=== PATIENT | female | born 1940 | race Caucasian/White ===

== ENCOUNTER → 2019-01-07 | Outpatient (CLI) | payer OTHER ==
[~2019-01-07] MED LIST: ASPIRIN81 M2 PO; AZOR 5-20 MG T1 EACH PO; CALCIUM 600 +1 EAC1 PO; COLESTIPOL HCL1 G1 PO; ESTRACE1 MG PO; FISH OIL 1,0001 EAC5 PO; GLUCOSAMINE HC500 MG PO; ICAPS TABLET1 EACH PO; MULTIVITAMINS1 EAC7 PO; NAPROSYN500 MG PO; NEXIUM40 MG PO; PAXIL10 MG PO; PROVERA5 MG PO; SYNTHROID112 MCG PO
== END ==
LOC: RAD 13:27
DX: M47.815 Spondylosis without myelopathy or radiculopathy, thoracolumbar region (principal); M48.05 Spinal stenosis, thoracolumbar region; M41.85 Other forms of scoliosis, thoracolumbar region; M25.78 Osteophyte, vertebrae

== ENCOUNTER → 2019-01-19 | Outpatient (CLI) | payer OTHER | LOC: MRI 14:31 | DX: M47.26 Other spondylosis with radiculopathy, lumbar region (principal); M48.061 Spinal stenosis, lumbar region without neurogenic claudication; M48.05 Spinal stenosis, thoracolumbar region; M51.16 Intervertebral disc disorders with radiculopathy, lumbar region; M51.25 Other intervertebral disc displacement, thoracolumbar region; M41.86 Other forms of scoliosis, lumbar region; M25.78 Osteophyte, vertebrae ==

== ENCOUNTER → 2019-01-27 | Outpatient (CLI) | payer OTHER ==
[~2019-01-27] VITALS: Ht 177.8 cm; Wt 69.9 kg
[~2019-01-27] MED LIST changes: +BENICAR 5 MG5 MG PO; +CALCITONIN-SAL3.7 ML NASAL; +NORCO 5-325 TA1 EAC1 PO; +RANITIDINE 150150 M1 PO; +SYNTHROID112 MC1 PO; -SYNTHROID112 MCG PO; +VOLTAREN GEL 1100 G2 TOP
--- NOTE | ~2019-01-27 | HPC ---
Formerly [facility] [address] [place] [address] PAIN MANAGEMENT CONSULTATION Name: HERIBERTO CALDWELL [facility] [id number] Admission: 01/27/19 ������������������ Attend Phys: Suresh Patel DO Discharge: ������������������ Date of : 40 Report #: [id number] THIS REPORT FOR: //name// CC: Suresh Ireland MD DATE OF SERVICE: 01/27/2019 CHIEF COMPLAINT: Low back pain, right lower extremity pain with paresthesias. HISTORY OF PRESENT ILLNESS: As you know, the patient is a 78-year-old female with longstanding history of low back pain, right lower extremity pain with intermittent paresthesias. She reports pain began somewhere in 2018 progressively worsened. She has trialled conservative treatment options via Dr. Ireland's office to address ongoing pain issues. Unfortunately, her symptoms have not improved. She subsequently underwent MRI of the lumbar spine, which showed scoliotic curvature with apex of the curvature at L2, minimal foraminal stenosis at multiple levels of severe right foraminal stenosis at the L4-L5 level with abutment and compression of the L4 nerve root. Due to the findings of the MRI, the patient was then referred to our clinic to discuss the possibility of undergoing epidural injections and other treatment options for lumbar radiculopathy. The patient reports today pain is continuous with intermittent exacerbation symptoms. She describes the pain as burning, sharp, numbness and tingling. Patient's current pain score 6/10, daily average at 8/10, worst pain has been is 10/10. The patient states that all activities tend to exacerbate symptoms, nothing appears to improve pain to date. She has been referred to our service to discuss treatment options for suspected lumbar radiculopathy. PAST MEDICAL HISTORY: 1. Hypertension. 2. Seasonal allergies. 3. Hypothyroidism. 4. Degenerative joint disease. 5. Osteoarthritis. 6. Peptic ulcer disease. PAST SURGICAL HISTORY: 1. Tonsillectomy. 2. Appendectomy. 3. Tubal ligation. SOCIAL HISTORY: The patient denies tobacco, IV or illicit drug use. Admits to occasional alcohol beverage. She is a retired clerical professional. She [facility] [address] [place] [address] PAIN MANAGEMENT CONSULTATION Name: HERIBERTO CALDWELL Room #: REG [facility] Kenny#: [id number] Admission: 01/27/19 ������������������ Attend Phys: Suresh Patel DO Discharge: ������������������ Date of : 40 Report #: [id number] retired in 1996, not receiving workmen's compensation or she is trying to obtain disability benefits. Not in litigation in regards to pain, unaccompanied at today's visit. REVIEW OF SYSTEMS: Positive for cataracts, status post surgery, tinnitus, shortness of breath walking or lying flat, rectal bleeding secondary to hemorrhoids, frequent urination, nocturia, incontinence and dribbling to urine, insomnia, low back pain, right lower extremity pain and paresthesias, heat and cold intolerance. All other review of systems negative per 12-point review of systems other than those listed in history of present illness. Pain impact score 48/70 indicating severe interference of daily activities secondary to pain. ALLERGIES: PENICILLIN AND SULFA. CURRENT MEDICATIONS: Hydrocodone/acetaminophen 5/325 one tab p.o. q. 12 hours p.r.n. for pain, calcitonin 3.75 mL spray twice a day, diclofenac sodium 2 grams topically up to 4 times a day, olmesartan 5 mg per day, ranitidine 150 mg per day, paroxetine 10 mg per daily, multivitamin 1 tab per day, omega-3 fish oil 1 tab per day, colestipol 1 gram twice a day, calcium carbonate 1 tab per day, levothyroxine 112 mcg per day, aspirin 81 mg per day. IMAGING: MRI lumbar spine obtained 01/19/2019 shows prominent scoliotic curvature extending through the spine with dextroscoliotic apex at L2. No significant neural impingement demonstrated the spinal canal, though there is severe right foraminal stenosis at the L4-L5 level with abutment and compression of the exiting L4 nerve root. PQRS: The patient has osteoarthritic changes of the lumbar spine, bilateral hips, bilateral knees. No rheumatoid arthritis. She is placing pain score today 6/10. She is not a fall risk, typically but did have a fall in the last 3 months, apparently tripped over some objects at home. This has been rectified. The patient is not on blood thinners. She is treated for hypertension. She is on opioids, but not chronic opioids. She has a low assessment for risk of opioid addiction based on our addiction tool. Pain impact score 48/70 severe interference of daily activities secondary to pain. PHYSICAL EXAMINATION: VITAL SIGNS: Blood pressure 148/75, pulse 72, respiratory rate 16 and unlabored. The patient is 100% on room air. Height 5 feet 10 inches tall, weight 154 pounds, BMI calculated 22.1. GENERAL: Well-developed, well-nourished, well-hydrated 78-year-old female, appears stated age, placing current pain score 6/10. HEENT: Normocephalic, atraumatic. Pupils equal, round, reactive to light. Extraocular muscles are intact. Sclerae nonicteric without injection. [address] [address] PAIN MANAGEMENT CONSULTATION Name: HERIBERTO CALDWELL Room #: [facility]#: [id number] Admission: 01/27/19 ������������������ Attend Phys: Suresh Patel DO Discharge: ������������������ Date of : 40 Report #: [id number] NEUROLOGIC: Cranial nerves 2-12 grossly intact. Speech fluent. The patient deemed a good historian. LUNGS: Clear, no wheeze, rhonchi or rales. CARDIOVASCULAR: Regular. No appreciable gallop, no rub. ABDOMEN: Soft, nontender, nondistended. EXTREMITIES: Show no clubbing, no cyanosis, and no edema. MUSCULOSKELETAL: Lower extremity strength appears equal and symmetrical 5/5. Slight giveaway strength noted with hip flexion on the right when compared to left due to pain generation. Seated straight leg raising is negative. Supine straight leg raising is positive on the right, approximately 70 degrees. Anu's test is negative. Modified Gaenslen's positive for axial low back pain, no radiation of symptoms. Ankle clonus is negative. Babinski is negative. Muscle bulk and tone symmetrical in comparing left lower extremity to right. Intact to light touch from L1 through S2 dermatomes. ASSESSMENT: 1. Symptomatic lumbar radiculopathy. 2. Severe neuroforaminal stenosis of lumbar spine. 3. Facet arthropathy of the lumbar spine. 4. Lumbosacral spondylosis with radiculopathy. 5. Displacement of lumbar intervertebral disk with radiculopathy. 6. Lumbar degeneration. 7. Chronic intractable pain. PLAN: 1. Based on today's physical exam and history the patient has provided, the description the patient uses in regards to pain as well as location of symptoms, likely source of the patient's pain is a lumbar radiculopathy. Findings of the MRI are consistent with L4 nerve root impingement on the right side, which does correlate to the patient's right lower extremity symptomology. We discussed the findings of the MRI with the patient today and discussed the treatment options based on those findings. The following was discussed with the patient. We discussed physical therapy, stretching exercise, core strengthening as a treatment option. We discussed medication management utilizing neuropathic pain medications and a nonsteroidal anti-inflammatory. We discussed lumbar epidural injections under fluoroscopic guidance, for which the patient was referred to our clinic. We also discussed spinal cord stimulator therapy and surgical options. After reviewing risks and benefits of all the proposed treatment options, the patient chose to have her undergo a lumbar epidural injection under fluoroscopic guidance to address lumbar radicular symptoms as quickly as possible. 2. The patient was advised risks and benefits of a lumbar epidural injection. These risks include but are not necessarily limited to bleeding, bruising, infection, worsening pain, no relief of pain, also risk of temporary or [address] [address] PAIN MANAGEMENT CONSULTATION Name: JAVIHERIBERTO L Room #: REG [facility] Cox#: [id number] Admission: 01/27/19 ������������������ Attend Phys: Suresh Patel DO Discharge: ������������������ Date of : 40 Report #: [id number] permanent muscle weakness, temporary or permanent nerve damage, possible paralysis, post-dural puncture headache and . The patient states understood and wished to proceed. 4. No medication changes made at today's visit. The patient will continue current medical therapy as previously prescribed. 5. We will see the patient back in followup visit on an as needed basis for possible next in the series of epidural injections under fluoroscopic guidance to address lumbar radicular symptoms. 6. We wish to thank Dr. Ireland for the referral of the patient to our clinic. We will keep you apprised of her response to treatment as we address her lumbar radicular symptoms. Again, we wish to thank you for the opportunity to see the patient in consultation. PROCEDURE NOTE DESCRIPTION OF PROCEDURE: L5-S1 right paramedian epidural steroid injection under fluoroscopic guidance. This is the first procedure of the first series that the patient is undergoing. After obtaining written consent, the patient was taken back to the fluoroscopy suite, placed in a prone position with pillow under the abdomen to decrease lumbar lordosis. The skin overlying the lumbosacral area was then prepped and draped in aseptic fashion. The L5-S1 vertebral interspace was then identified by AP fluoroscopy. The skin and subcutaneous tissue overlying the target site of injection was anesthetized with 3 mL 1% lidocaine. A 20-gauge 3-1/2 inch Tuohy needle was then advanced under fluoroscopic guidance towards the epidural space using a right paramedian approach. The epidural space was identified using loss of resistance to air technique. After negative aspiration for heme or cerebrospinal fluid, a total of 1 mL of Omnipaque was injected. A lumbar epidurogram was confirmed using both AP and lateral fluoroscopy. After negative aspiration for heme or cerebrospinal fluid, 5 mL of a solution containing 2 mL 40 mg per mL, 80 mg total triamcinolone, 3 mL lidocaine 1% was injected in increments. Contrast spread was noted posterior epidural space. The needle was then retracted approximately half way and needle tract flushed with 1 mL of 1% lidocaine. Needle was then removed. There were no apparent sensory or motor deficits in the lower extremity following the procedure. A sterile bandage was placed over the injection site. The heart rate, pulse, oximetry and blood pressure were continuously monitored after the procedure. There were no complications. The patient tolerated the procedure well and was carefully escorted to the recovery room in [facility] [address] [place] [address] PAIN MANAGEMENT CONSULTATION Name: HERIBERTO CALDWELL Room #: REG [facility] Cox#: [id number] Admission: 01/27/19 ������������������ Attend Phys: Suresh Patel DO Discharge: ������������������ Date of : 40 Report #: [id number] condition. There were no apparent complications. After meeting discharge criteria, the patient was then discharged home. ��������������������������������������������� ���������������������������������������� By: ��������������������������������������������� [id number] Suresh Patel DO /nt
[2019-01-27 11:07] VITALS: BP 148/75
--- NOTE | 2019-01-27 11:43 | NUR ---
Pain Clinic Assessment: 1. History of Osteoarthritis: SPINE History of Rheumatoid Arthritis: NO 2. Height: 5 ft. 10 in. 177.8 cm. Weight: 154.0 lb. oz. 69.854 kg. Patient's BMI: 22.1 3. Vital Signs: BP: 148/75 Pulse: 72 Resp: 16 Temp: 02 Sat: 100 ECG Mon: 4. Pain Intensity: 6 5. Fall Risk: Dizziness: Y Needs help standing or walking: N Fallen in the last 3 months: Y Fall risk comments: 6. Patient on Blood Thinner: None 7. History of Hypertension: Y 8. Opioid Therapy greater than 6 weeks: N Opiate Contract Signed: 9. Risk Assessment Tool Provided: 10. Functional Assessment Tool: 11. Recreational Drug Use: Never Drug Type: Tobacco Use: Never Smoker Tobacco Type: Amount or Packs/day: How Many Years: Alcohol Use: Yes Frequency: Special Occasions Quant:
== END | disposition home or self-care (01) ==
LOC: PAIN 06:56
DX: M51.16 Intervertebral disc disorders with radiculopathy, lumbar region (principal); M47.27 Other spondylosis with radiculopathy, lumbosacral region; M99.73 Connective tissue and disc stenosis of intervertebral foramina of lumbar region; M12.88 Other specific arthropathies, not elsewhere classified, other specified site; G89.29 Other chronic pain; I10 Essential (primary) hypertension; E03.9 Hypothyroidism, unspecified; K27.9 Peptic ulcer, site unspecified, unspecified as acute or chronic, without hemorrhage or perforation; Z98.890 Other specified postprocedural states; Z90.49 Acquired absence of other specified parts of digestive tract; Z98.51 Tubal ligation status; Z88.0 Allergy status to penicillin; Z88.2 Allergy status to sulfonamides; Z79.899 Other long term (current) drug therapy; Z79.82 Long term (current) use of aspirin

== ENCOUNTER → 2019-02-05 | Outpatient (CLI) | payer OTHER | LOC: RAD 10:10 | DX: M17.11 Unilateral primary osteoarthritis, right knee (principal) ==

== ENCOUNTER → 2019-04-21 | Outpatient (CLI) | payer OTHER ==
[~2019-04-21] VITALS: Ht 177.8 cm; Wt 70.3 kg
[~2019-04-21] MED LIST changes: +FAMOTIDINE 20 M20 MG PO
[2019-04-21 12:50] VITALS: BP 145/78
--- NOTE | 2019-04-21 12:59 | NUR ---
Pain Clinic Assessment: 1. History of Osteoarthritis: SPINE History of Rheumatoid Arthritis: NO 2. Height: 5 ft. 10 in. 177.8 cm. Weight: 155.0 lb. oz. 70.308 kg. Patient's BMI: 22.2 3. Vital Signs: BP: 145/78 Pulse: 72 Resp: 16 Temp: 02 Sat: 99 ECG Mon: 4. Pain Intensity: 7 5. Fall Risk: Dizziness: N Needs help standing or walking: N Fallen in the last 3 months: N Fall risk comments: 6. Patient on Blood Thinner: None 7. History of Hypertension: Y 8. Opioid Therapy greater than 6 weeks: N Opiate Contract Signed: 9. Risk Assessment Tool Provided: 10. Functional Assessment Tool: 11. Recreational Drug Use: Never Drug Type: Tobacco Use: Never Smoker Tobacco Type: Amount or Packs/day: How Many Years: Alcohol Use: Yes Frequency: Quant:
--- NOTE | 2019-04-28 12:48 | HPC ---
[facility] [address] [place] [address] PAIN MANAGEMENT CONSULTATION Name: HERIBERTO CALDWELL Room #: REG [facility]#: [id number] Admission: 04/21/19 Attend Phys: Suresh Patel DO Discharge: Date of : 40 Report #: [id number] THIS REPORT FOR: //name// CC: Suresh Ireland MD DATE OF SERVICE: 04/21/2019 REFERRING PHYSICIAN: Wilman Ireland MD. CHIEF COMPLAINT: Low back pain and right lower extremity pain with paresthesias. HISTORY OF PRESENT ILLNESS: As you know, the patient is a 78-year-old female with severe osteoarthritic changes of the lumbar spine with severe scoliotic curvature with apex at approximately the L3 level, returning in followup visit with low back pain and right lower extremity pain with paresthesias. She underwent the epidural injection under fluoroscopic guidance at her last visit to address lumbar radicular symptoms with 90% improvement in overall pain, lasting for nearly 7 weeks. She returns today in followup visit to undergo next in the series of lumbar epidural injections in hopes of improving pain. She denies new injury or trauma that may have led to the symptom reoccurrence. ALLERGIES: PENICILLIN and SULFA. CURRENT MEDICATIONS: See chart. SOCIAL HISTORY: The patient denies tobacco, IV or illicit drug use. Admits to occasional alcohol beverage. 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 IMAGING: No new imaging available. PQRS: The patient has severe arthritic changes of the thoracic and lumbar spine. No history of rheumatoid arthritis. She is placing pain intensity at 7/10. She is not a fall risk and has not had a fall in the last 3 months. She is not on blood thinners, but is treated for hypertension. She is not on chronic opioids and has a low opioid addiction potential. Pain impact score, 48 of 70, indicating severe interference of daily activities secondary to pain. PHYSICAL EXAMINATION: VITAL SIGNS: Blood pressure 145/78, pulse is 72, respiratory rate 16 and unlabored, and the patient is 99% on the room air. Height 5 feet and 10 inches tall, weight 155 pounds, BMI calculated 22.2. GENERAL: Well-developed, well-nourished, well-hydrated, scoliotic 78-year-old [address] [address] PAIN MANAGEMENT CONSULTATION Name: HERIBERTO CALDWELL [facility] #: [facility] [id number] Admission: 04/21/19 Attend Phys: Suresh Patel DO Discharge: Date of : 40 Report #: [id number] female, appearing stated age, pain is rated around 7/10. HEENT: Normocephalic and atraumatic. Pupils are equal, round, and reactive to light. Speech is fluent. EXTREMITIES: Show no clubbing, no cyanosis, and no discernible edema. MUSCULOSKELETAL: Lower extremity strength remains symmetrical, 5/5. Seated straight leg raising is negative. Supine straight leg raising, positive on the right. Modified Gaenslen's is positive for axial low back pain, noted significant scoliotic curvature with apex to the right. ASSESSMENT: 1. Symptomatic lumbar radiculopathy. 2. Severe neural foraminal stenosis of the lumbar spine. 3. Facet arthropathy of the lumbar spine. 4. Displacement of the lumbar intervertebral disk with radiculopathy. 5. Lumbar degeneration. 6. Chronic intractable pain. PLAN: 1. The patient returns today in followup visit to undergo next in the series of lumbar epidural injections in hopes of improving pain. As indicated in the history of present illness, the patient did receive about 90% improvement in overall pain, lasting for about 6-7 weeks with the previous epidural injection. She returns today to undergo next in the series. She has been advised of risks and benefits of the procedure, states understood and wished to proceed. 2. No medication changes made at today's visit. The patient will continue current medical therapy as previously prescribed. 3. We will see the patient back in followup visit on an as needed basis for the next in the series of lumbar epidural injections under fluoroscopic guidance. PROCEDURE NOTE: DESCRIPTION OF PROCEDURE: L3-L4 RIGHT PARAMEDIAN EPIDURAL STEROID INJECTION UNDER FLUOROSCOPIC GUIDANCE: This is the second procedure of the first series that the patient is undergoing. After obtaining written consent, the patient was taken back to the fluoroscopy suite, placed in a prone position with pillow under the abdomen to decrease lumbar lordosis. The skin overlying the lumbosacral area was then prepped and draped in aseptic fashion. The L3-L4 vertebral interspace was then identified by AP fluoroscopy. The skin and subcutaneous tissue overlying the target site of injection was anesthetized with 3 mL 1% lidocaine. A 20-gauge, 3-1/2 inch Tuohy needle was then advanced under fluoroscopic guidance towards the epidural space using a right paramedian approach. The epidural space was identified using loss of resistance to air technique. After negative aspiration for heme or cerebrospinal fluid, a total of 1 mL of [address] [address] PAIN MANAGEMENT CONSULTATION Name: HERIBERTO CALDWELL Room #: REG [facility] Cox#: [id number] Admission: 04/21/19 Attend Phys: Suresh Patel DO Discharge: Date of : 40 Report #: [id number] Omnipaque was injected. A lumbar epidurogram was confirmed using both AP and lateral fluoroscopy. After negative aspiration for heme or cerebrospinal fluid, 5 mL of a solution containing 2 mL of 40 mg per mL, 80 mg total triamcinolone along with 3 mL of lidocaine 1% was injected in increments. Contrast spread was noted post-epidural space. The needle was then retracted approximately half way and needle tract flushed with 1 mL of 1% lidocaine. Needle was then removed. There were no apparent sensory or motor deficits in the lower extremity following the procedure. A sterile bandage was placed over the injection site. The heart rate, pulse, oximetry and blood pressure were continuously monitored after the procedure. There were no apparent complications. The patient tolerated the procedure well and was carefully escorted to the recovery room in stable condition. There were no apparent complications. After meeting discharge criteria, the patient was then discharged home. <ELECTRONICALLY SIGNED> By: Suresh Patel DO 04/28/19 [id number] [id number] Suresh Patel DO /nt
== END | disposition home or self-care (01) ==
LOC: PAIN 07:01
DX: M54.5 Low back pain (principal); M51.16 Intervertebral disc disorders with radiculopathy, lumbar region; M47.26 Other spondylosis with radiculopathy, lumbar region; M48.061 Spinal stenosis, lumbar region without neurogenic claudication; G89.29 Other chronic pain; I10 Essential (primary) hypertension; Z98.890 Other specified postprocedural states; Z79.899 Other long term (current) drug therapy; Z88.0 Allergy status to penicillin; Z88.2 Allergy status to sulfonamides

== ENCOUNTER → 2019-08-14 | Outpatient (CLI) | payer OTHER ==
[~2019-08-14] MED LIST changes: +TOPROL XL25 MG PO
== END ==
LOC: SJCVC 15:09
DX: I21.09 ST elevation (STEMI) myocardial infarction involving other coronary artery of anterior wall (principal); I21.19 ST elevation (STEMI) myocardial infarction involving other coronary artery of inferior wall; R94.31 Abnormal electrocardiogram [ECG] [EKG]; R06.02 Shortness of breath; I12.9 Hypertensive chronic kidney disease with stage 1 through stage 4 chronic kidney disease, or unspecified chronic kidney disease; N18.3 Chronic kidney disease, stage 3 (moderate); R07.9 Chest pain, unspecified; E78.00 Pure hypercholesterolemia, unspecified; E03.9 Hypothyroidism, unspecified; K21.9 Gastro-esophageal reflux disease without esophagitis; M81.0 Age-related osteoporosis without current pathological fracture; M21.70 Unequal limb length (acquired), unspecified site; F32.9 Major depressive disorder, single episode, unspecified; Z85.828 Personal history of other malignant neoplasm of skin; Z72.89 Other problems related to lifestyle; Z79.82 Long term (current) use of aspirin; Z79.899 Other long term (current) drug therapy

== ENCOUNTER → 2019-08-24 | Outpatient (CLI) | payer OTHER ==
[~2019-08-24] MED LIST changes: -TOPROL XL25 MG PO
== END ==
LOC: SJCVCIMAG 11:30
DX: I08.1 Rheumatic disorders of both mitral and tricuspid valves (principal); I10 Essential (primary) hypertension; R07.9 Chest pain, unspecified; R53.83 Other fatigue

== ENCOUNTER → 2019-08-25 | Outpatient (CLI) | payer OTHER ==
[~2019-08-25] MED LIST changes: +TOPROL XL25 MG PO
== END ==
LOC: SJCVCIMAG 12:14
DX: I49.3 Ventricular premature depolarization (principal); R42 Dizziness and giddiness; I12.9 Hypertensive chronic kidney disease with stage 1 through stage 4 chronic kidney disease, or unspecified chronic kidney disease; N18.9 Chronic kidney disease, unspecified; E78.00 Pure hypercholesterolemia, unspecified; I25.10 Atherosclerotic heart disease of native coronary artery without angina pectoris; E78.5 Hyperlipidemia, unspecified; K21.9 Gastro-esophageal reflux disease without esophagitis; M81.0 Age-related osteoporosis without current pathological fracture; Z82.49 Family history of ischemic heart disease and other diseases of the circulatory system; Z88.2 Allergy status to sulfonamides; Z88.0 Allergy status to penicillin; Z79.82 Long term (current) use of aspirin; Z79.899 Other long term (current) drug therapy

== ENCOUNTER → 2019-08-31 | Outpatient (CLI) | payer OTHER ==
[~2019-08-31] VITALS: Ht 177.8 cm; Wt 68.9 kg
[2019-08-31 07:05] VITALS: BP 115/61
[2019-08-31 07:18] LABS: HEMATOCRIT 38.5 % (37.0-47.0); HEMOGLOBIN 12.2 gm/dL (12.0-15.0); MCH 30.3 pg (26.0-34.0); MCHC 31.8 g/dL (28.0-37.0); MCV 95.3 fL (80.0-100.0); RBC 4.04 mil/uL (4.20-5.00); RDW 14.4 % (10.5-14.5); WBC 7.1 thou/uL (4.0-11.0)
[2019-08-31 07:29] LABS: CALCIUM 9.3 mg/dL (8.5-10.1); CREATININE 1.3 mg/dL (0.6-1.0); POTASSIUM 4.1 mmol/L (3.5-5.1)
--- NOTE | 2019-08-31 09:01 | EKG ---
[facility] [address] ELECTROCARDIOGRAM REPORT Name: HERIBERTO CALDWELL Room #: REG [facility]#: [id number] Admission: 08/31/19 Attend Phys: Delta Driscoll MD Discharge: Date of : 40 Report #: [id number] THIS REPORT FOR: cc: Wilman Ireland Steven F. DO Couchonnal, Luis F. MD ~ THIS REPORT FOR: //name// Test Date: 2019-08-31 Test Time: 06:33:30 Pat Name: HERIBERTO CALDWELL Department: Room: Gender: Exceptional Needs Teacher: Elan INIGUEZ : 1940 Requested By: Delta Driscoll Order Number: [id number] MD: Karan Resendez Measurements Intervals [place] Rate: 64 P: 64 MI: 231 QRS: -43 QRSD: 112 T: 68 QT: 456 QTc: 471 Interpretive Statements Sinus rhythm Prolonged MI interval Incomplete left bundle branch block Low voltage, precordial leads Anterior Q waves, possibly due to ILBBB Compared to ECG 09/16/2014 06:43:36 Electronically Signed On 08-31-2019 9:00:18 CDT by Karan Resendez [email or web address] <ELECTRONICALLY SIGNED> By: Karan Resendez MD 08/31/19899 2 2 Karan Resendez MD /EPI
--- NOTE | 2019-08-31 13:25 | CATHLAB ---
[facility] [place] [address] INVASIVE PROCEDURE REPORT Name: HERIBERTO CALDWELL Room #: REG [facility]#: [id number] Admission: 08/31/19 Attend Phys: Delta Driscoll MD Discharge: Date of : 40 Report #: [id number] THIS REPORT FOR: cc: Wilman Ireland Steven F. DO Park, Jin S. MD ~ APPROVED REPORT Study performed: 08/31/2019 07:29:17 Patient Details Patient Status: Out-Patient Room #: The patient is a 79 year-old female Event Personnel Delta Driscoll Lead Php Developer, Zeb Nevarez Johnson, Ashley RN RN, Isaac Bains RTR Scrub Procedures Performed Left Heart Cath w/or w/o Coronaries [id number] [facility] Indication Dyspnea, Positive stress test Risk Factors HypercholesterolemiaPhysical Activity, Hypertension Procedure Narrative The Right Groin^ was infiltrated with 1% Lidocaine subcutaneous anesthesia. A PINNACLE 4FR Sheath #[id number] sheath was inserted into the RFA^. Coronary angiography was performed using coronary diagnostic catheters. The right coronary system was accessed and visualized with a JR4 catheter. The left coronary system was accessed and visualized with a JL4 catheter. The left ventricle was accessed and visualized with a PIGTAIL catheter. Left ventricular/Aortic Valve gradient assessed via catheter pullback. Hemostasis was obtained with manual pressure following sheath removal without any complications. The patient tolerated the procedure well and there were no complications associated with the procedure. There was no hematoma. Intraoperative Conscious Sedation Sedation start time: 8.25 Case end Time: 8.52 [facility] [address] [place] [address] INVASIVE PROCEDURE REPORT Name: JAVIHERIBERTO Сергей [facility]: [id number] Admission: 08/31/19 Attend Phys: Delta Driscoll MD Discharge: Date of : 40 Report #: [id number] Fentanyl 50 mcg Versed 1 mg Fluoro Time: 1.45 minutes Dose: DAP 1104.00 cGycm2 150 mGy Contrast Type and Amount: Visipaque 45 ml Coronary Angiography The patient's coronary anatomy is right dominant. Diagnostic Cath Left Main This is a large caliber vessel, patent with no flow-limiting lesions. LAD The LAD is a moderate size caliber vessel, traversing the anterior wall and wrapping around the apex. The distal segment is tortuous. There may be minimal luminal irregularities within the mid segment of the LAD. Diagonal 1 This is a patent vessel, with no flow-limiting lesions. Diagonal 2 This is a patent vessel, with no flow-limiting lesions. Circumflex This is a small to moderate size caliber vessel, mild disease in the proximal segment. OM1 This is a patent vessel, with no flow-limiting lesions. Right Coronary The RCA is a dominant vessel, patent with no flow-limiting lesions. R PDA This is a patent vessel, with no flow-limiting lesions. RPLV This is a moderate size caliber vessel, patent with no flow-limiting lesions. This artery supplies the inferolateral wall and extends out to the apex. Left Ventriculography Left Ventriculography was not performed. Ejection Fraction was 55-60% based off patient's Nuclear Cardiac Stress Test. An LVEDP was measured and there is no gradient across the outflow tract. Hemodynamics The aortic pressure is 117/45 mmHg with a mean of 70 mmHg. The left ventricular pressure is 122/10 mmHg with a mean of mmHg. The left ventricular end diastolic pressure is 16 mmHg. There was no gradient across the aortic valve upon pullback. Pullback from the left ventricle to the aorta revealed no gradient across the aortic valve. Conclusion [facility] [address] [place] [address] INVASIVE PROCEDURE REPORT Name: HERIBERTO CALDWELL Room #: REG [facility]#: [id number] Admission: 08/31/19 Attend Phys: Delta Driscoll MD Discharge: Date of : 40 Report #: [id number] 1. Angiographically normal LAD with minimal luminal irregularities in the midsegment. 2. 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 3. The RCA is a dominant vessel, angiographically normal. 4. Recommend aggressive risk factor management. <ELECTRONICALLY SIGNED> By: Delta Driscoll MD 08/31/19 1324 1324 132 eDlta Driscoll MD /ANGEL
== END | disposition home or self-care (01) ==
LOC: CATH 07:08
PROVIDERS: Internal Medicine Cardiovascular Disease
DX: R94.39 Abnormal result of other cardiovascular function study (principal); R06.00 Dyspnea, unspecified; I25.10 Atherosclerotic heart disease of native coronary artery without angina pectoris; I10 Essential (primary) hypertension; E78.00 Pure hypercholesterolemia, unspecified; K21.9 Gastro-esophageal reflux disease without esophagitis; M81.0 Age-related osteoporosis without current pathological fracture; F32.9 Major depressive disorder, single episode, unspecified; Z90.49 Acquired absence of other specified parts of digestive tract; Z98.51 Tubal ligation status; Z98.890 Other specified postprocedural states; Z79.899 Other long term (current) drug therapy; Z88.0 Allergy status to penicillin; Z88.2 Allergy status to sulfonamides; Z79.82 Long term (current) use of aspirin